=== PATIENT | female | born 1995 | race Caucasian/White ===

== ENCOUNTER → 2021-07-13 | Outpatient (CLI) | payer OTHER ==
[~2021-07-13] MED LIST: ALBU90OI INH; Acetaminophen325 M1 PO; EUTHYROX75 MCG PO; FISH OIL 1,2001 EAC7 PO; SERT50 PO
[2021-07-13 17:23] LABS: Source, Urine Clean Catch
[2021-07-13 18:41] LABS: Appearance, Urine Clear (Clear); Bilirubin, Urine Neg (Neg); Blood, Urine 3+ (Neg); Color, Urine Yellow (P-Yellow); Glucose Qualitative, Urine Neg (Neg); Ketones, Urine Neg (Neg); Leukocyte Esterase, Urine Neg (Neg); Nitrite, Urine Neg (Neg); Protein, Urine 1+ (Neg); Urobilinogen, Urine NORM (Normal)
[2021-07-13 19:08] LABS: Creatinine, Urine Random 42.8 mg/dL (27.00-270.00); Protein, Urine Random 9.6 mg/dL (0.0-11.9); Protein/Creat Ratio, Ur Random 0.2
[2021-07-13 19:14] LABS: Bacteria Few /hpf; Red Blood Cells, Urine 0-2 /hpf (0-2); Squamous Epithelial Cells Rare /hpf (Few); White Blood Cells, Urine 0-2 /hpf (0-5)
== END | disposition home or self-care (01) ==
LOC: LAB SHORT 17:20 → LAB FUT 02-11 08:10
PROVIDERS: Internal Medicine Nephrology
DX: Q60.2 Renal agenesis, unspecified (principal)
CPT/HCPCS: 81001; 82570; 84156

== ENCOUNTER → 2022-05-05 | Outpatient (CLI) | payer OTHER ==
[2022-05-05 19:09] LABS: Protein, Urine Random 27.6 mg/dL (0.0-11.9); Protein/Creat Ratio, Ur Random 0.2
== END | disposition home or self-care (01) ==
LOC: LAB 16:30 → LAB SHORT 16:30
PROVIDERS: Internal Medicine Nephrology
DX: N18.2 Chronic kidney disease, stage 2 (mild) (principal); R80.9 Proteinuria, unspecified
CPT/HCPCS: 82570; 84156